=== PATIENT | female | born 1995 | race African-American/Black ===

== ENCOUNTER → 2016-11-30 | Outpatient (CLI) | payer OTHER ==
[~2016-11-30] MED LIST: CEPH500C3 PO; DIFL150T PO; DOCO200C; DOXY100T PO; FERR325T PO; HYDR-3533 PO; IBUP-232 PO; IBUP800T23 PO; PROM25SU8 PO; ZOVI200C24 PO; [UNRECOGNIZED DRUG - OTHER]
== END ==
LOC: HPND 08:09
PROVIDERS: ATTEND Obstetrics & Gynecology
DX: O36.5990 Maternal care for other known or suspected poor fetal growth, unspecified trimester, not applicable or unspecified (principal); Z3A.36 36 weeks gestation of pregnancy
CPT/HCPCS: 76816

== ENCOUNTER 2016-12-28 19:54 | Inpatient (IN) | payer OTHER ==
[~2016-12-28] VITALS: Ht 170.2 cm; Wt 87.1 kg
[~2016-12-28 19:54] MED LIST changes: -DOCO200C; -FERR325T PO; -IBUP-232 PO
[2016-12-28] MEDS ORDERED: DOCO200C (20:41)
[2016-12-28] MEDS ORDERED: FERR325T PO (20:43)
[2016-12-28] MEDS: LACTATED RINGER'S 1000 ML IV SCH (21:21)
[2016-12-28] MEDS ORDERED: ONDANSETRON HCL 4 MG/2 ML VIAL IV PUSH PRN (21:30)
[2016-12-28] MEDS ORDERED: NS 500 ML BOLUS IV PRN (21:30)
[2016-12-28] MEDS ORDERED: CITRIC ACID-SODIUM CITRATE LIQ 30 ML UDC PO SCH (21:30)
[2016-12-28] MEDS ORDERED: LIDOCAINE HCL 1% 50 ML VIAL INFIL PRN (21:30)
[2016-12-28] MEDS ORDERED: DINOPROSTONE 10 MG INSERT-LEAVE FOR 12 HOURS VAGINAL ONE (21:30)
[2016-12-28] MEDS ORDERED: LACTATED RINGER'S 1000 ML BOLUS IV PRN (21:30)
[2016-12-28] MEDS ORDERED: MINERAL OIL 10 ML VIAL TOP PRN (21:30)
[2016-12-28] MEDS ORDERED: LIDOCAINE HCL 1% 50 ML VIAL I-DERMAL PRN (21:30)
[2016-12-28] MEDS ORDERED: NS 1000 ML IV PRN (21:30)
[2016-12-28] MEDS ORDERED: ZOLPIDEM TARTRATE 10 MG TAB PO PRN (21:30)
[2016-12-28] MEDS ORDERED: OXYTOCIN 30 UNITS 500ML PREMIX IV ONE (21:30)
[2016-12-28 22:10] LABS: AUTOMATED NEUTROPHIL # 4.7 TH/MM3 (1.8-7.7); BASOPHIL % 0.2 % (0.0-2.0); EOSINOPHIL # 0.1 TH/MM3 (0-0.4); EOSINOPHIL % 0.9 % (0.0-4.0); HEMATOCRIT 35.8 % (35.0-46.0); LYMPH % 21.3 % (9.0-44.0); LYMPHOCYTE # 1.4 TH/MM3 (1.0-4.8); MEAN CELL VOLUME 85.8 FL (80.0-100.0); MEAN CORPUSCULAR HGB CONC 32.7 % (32.0-36.0); MONO % 7.5 % (0.0-8.0); NEUT % 70.1 % (16.0-70.0); PLATELET COUNT 183 TH/MM3 (150-450); RED BLOOD COUNT 4.18 MIL/MM3 (4.00-5.30); RED CELL DISTRIBUTION WIDTH 19.1 % (11.6-17.2); WHITE BLOOD COUNT 6.7 TH/MM3 (4.0-11.0)
[2016-12-28 22:14] LABS: HEMO FLAGS AUTO DIFF
[2016-12-28 22:19] LABS: BACTERIA, URINE RARE /hpf; BLOOD, URINE NEG (NEG); COMMENT (UR) CULT NOT INDICATED; CULTURE IF INDICATED CULT NOT INDICATED; GLUCOSE,URINE NEG (NEG); HYALINE CAST, URINE 2 /lpf (RARE); KETONE, URINE NEG (NEG); MUCUS URINE FEW /lpf (OCC); NITRITE,URINE NEG (NEG); PH, URINE 7.5 (5.0-8.5); SQUAMOUS EPITHELIAL CELL URINE 7 /hpf (0-5); URINE COLOR YELLOW (YELLW/STRAW)
[2016-12-28 22:41] VITALS: BP 113/66; PULSE 99
[2016-12-28 22:45] VITALS: RESP 18
[2016-12-28 22:54] LABS: ACANTHOCYTES OCC (NORMAL); KERATOCYTES OCC (NORMAL); OVALOCYTES 1+ (NORMAL); PLATELET ESTIMATE SMEAR NORMAL (NORMAL); PLATELET MORPHOLOGY NORMAL (NORMAL)
[2016-12-28 22:55] LABS: SCAN/DIFF AUTO DIFF CONFIRMED
[2016-12-29] VITALS (81 sets, daily range): BP systolic 97–144; BP diastolic 54–101; PULSE 76–164; RESP 18–20; TEMP 98.1–98.8
[2016-12-29] MEDS: LACTATED RINGER'S 1000 ML IV SCH (01:38)
--- NOTE | 2016-12-29 08:08 | HHI.HP ---
HPI Chief Complaint postterm labor induction, oligo on office sono Date Seen: Dec 28, 2016 Time Seen: 22:00 Travel History International Travel<30 Days: No Contact w/Intl Traveler<30Days: No Known Affected Area: No History of Present Illness HPI 21 yo G0 with EDC 12/27/16 seen in office 12/28/16 for postdates evaluation with finding of SKIP 4.5cm on sonogram, otherwise BPP 8/8. Pt c/o pelvic pressure but no regular contractions, denies VB or LOF. Reports +FM. Pt's care has been complicated by anemia with baseline Hgb 8.6 for which pt was started on oral iron therapy. Also pt was diagnosed and treated for chlamydia in second trimester, test of cure was negative. Otherwise uncomplicated course. Presented late to care at 19 wks, did not know was . Pain 2/ 10 pressure in pelvis. Para: 0 : 1 Last Menstrual Period: March 22, 2016 Miscarriage: 0 : 0 History Past Medical History Narrative Medical anemia in Obstetric History Obstetric History G1 = current, female Past Surgical History Narrative Surgical denies Family History Family History: Negative Social History Alcohol Use: No Tobacco Use: No Substance Abuse: No Allergies-Medications (Allergen,Severity, Reaction): Coded Allergies: No Known Allergies (Verified , 02/06/15) Home Meds Reported Medications Ferrous Sulfate 325 Mg [id number] Mg PO BID #30 TAB Ref 0 12/28/16 Docosahexaenoic Acid ( Dha)200 Mg Cap 12/28/16 Discontinued Reported Medications Ibuprofen 800 Mg [id number] Mg PO TID 02/07/15 [numbing cream] No Conflict Check 02/07/15 Cephalexin (Keflex)500 Mg [id number] Mg PO Q8 #30 CAP 02/07/15 Discontinued Scripts Fluconazole 150 mg (Diflucan 150 mg)150 Mg [id number] Mg PO ONCE #1 TAB Ref 1 Prov:Alisa Smith MD 02/07/15 Promethazine Hcl 25 Mg Tab25 Mg PO Q6H PRN (NAUSEA OR VOMITING) #10 TAB FOR NAUSEA/VOMITING Prov:Alisa Smith MD 02/07/15 Acyclovir (Zovirax)200 Mg [id number] Mg PO 5 TIMES A DAY 10 Days Prov:Alisa Smith MD 02/07/15 Hydrocodone/Acetaminophen 5 mg/325 mg (Lortab 5 mg/325 mg)1 Tab1 Tab PO Q6H PRN (PAIN) #12 TAB Prov:Alisa Smith MD 02/07/15 Doxycycline Hyclate 100 mg 100 Mg [id number] Mg PO BID 7 Days Prov:Alisa Smith MD 02/07/15 Review of Systems General / Constitutional: Weight Gain, No: Fever, Chills, Other Eyes: No: Diploplia, Blurred Vision, Visual changes, Pain, Photophobia HENT: No: Headaches, Vertigo, Lightheadedness Cardiovascular: No: Irregular Rhythm, Chest Pain or Discomfort, Palpitations, Tachycardia, Syncope, Varicosities, Edema, Cyanosis Respiratory: No: Cough, Short of Breath, Other Gastrointestinal: No: Nausea, Vomiting, Diarrhea Genitourinary: Pelvic Pain (pressure), No: Decreased Urinary Output, Oliguria Musculoskeletal: No: Limited ROM, Weakness, Cramping, Edema, Pain Skin: No Rash, No Itching, No Dryness, No Lumps, No Change in Pigmentation, No Change in Nails, No Alopecia, No Lesions Neurologic: No: Weakness, Dizziness, Syncope, Focal Abnormalities, Coordination Problem, Headache, Slurred Speech, Seizures Psychiatric: No: Depression, Suicidal Ideations, Homicidal Ideation Endocrine: No: Heat Intolerance, Cold Intolerance, Polydipsia, Polyuria, Other Physical Exam Vital Signs Date Time Temp Pulse Resp B/P Pulse Ox O2 Delivery O2 Flow Rate FiO2 12/29/16 07:25 20 12/29/16 05:30 98.1 18 12/29/16 05:26 84 125/86 12/29/16 04:00 18 12/29/16 02:56 18 12/29/16 01:32 87 122/78 12/29/16 01:30 20 12/29/16 01:00 18 12/29/16 00:00 18 12/28/16 22:45 18 12/28/16 22:41 99 113/66 Narrative GENERAL: Well-nourished, well-developed patient. SKIN: Warm and dry. HEAD: Normocephalic and atraumatic. EYES: No scleral icterus. No injection or drainage. ENT: No nasal drainage noted. Mucous membranes pink. Airway patent. NECK: Supple, trachea midline. No JVD. CARDIOVASCULAR: Regular rate and rhythm without murmurs, gallops, or rubs. RESPIRATORY: Breath sounds equal bilaterally. No accessory muscle use. BREASTS: declined. ABDOMEN/GI: Abdomen soft, non-tender, bowel sounds present, no rebound, no guarding Gravid to [40] weeks size Fundal Height: [40] GENITOURINARY: External Genitalia: intact and normal in appearance BUS glands: [wnl] Cervix: post, soft] Dilatation: [1] Effacement: [70] Station: [-1] Presentation: [vtx Membranes: [intact] Uterine Contractions: [rare] FHT's: 8/8 BPP in office, FHTs 140s EXTREMITIES: No cyanosis or edema. BACK: Nontender without obvious deformity. No CVA tenderness. NEUROLOGICAL: Awake and alert. Motor and sensory grossly within normal limits. Five out of 5 muscle strength in all muscle groups. Normal speech. Data Data Vital Signs Reviewed: Yes Orders Complete Blood Count With Diff (12/28/16 20:59) Hold Clot (12/28/16 20:59) Abo/Rh Blood Type (12/28/16 20:59) Urinalysis - C+S If Indicated (12/28/16 20:59) Admit To Inpatient (12/28/16 ) Diet Liquid (12/29/16 Breakfast) Activity Oob Ad [place] (12/28/16 21:09) ^ Labor Induction (12/28/16 21:09) ^ Vaginal Insert (12/28/16 21:09) ^ Vaginal Lavage (12/28/16 21:09) ^ Heart (12/28/16 21:09) Admit To Inpatient (12/28/16 ) Vital Signs (Adult) .Per protocol (12/28/16 21:10) Activity Oob Ad [place] (12/28/16 21:10) ^ Heart (12/28/16 21:10) ^ Amnioinfusion (12/28/16 21:10) Urinary Catheter Management .ONCE (12/28/16 21:10) Resp Oxygen Non Rebreathe Mask (12/28/16 ) ^ Epidural / Intrathecal Infus (12/28/16 21:10) Lactated Ringer's 1000 Ml Inj (Lr 1000 M (12/28/16 21:30) Lactated Ringer's 1000 Ml Inj (Lr 1000 M (12/28/16 21:30) Sodium Chlorid 0.9% 500 Ml Inj (Ns 500 M (12/28/16 21:30) Sodium Chlor 0.9% 1000 Ml Inj (Ns 1000 M (12/28/16 21:30) Lidocaine 1% Inj (50 Ml) (Xylocaine 1% I (12/28/16 21:30) Citric Acid-Sodium Citrate Liq (Bicitra (12/28/16 21:30) Fentanyl Inj (Fentanyl Inj) (12/28/16 21:30) Fentanyl Inj (Fentanyl Inj) (12/28/16 21:30) Oxytocin 30 Units-500ml Premix (Pitocin (12/28/16 21:30) Lidocaine 1% Inj (50 Ml) (Xylocaine 1% I (12/28/16 21:30) Light Mineral Oil (Muri-Lube Oil) (12/28/16 21:30) Dinoprostone Vag Insert (Cervidil Vag In (12/28/16 21:30) Zolpidem (Ambien) (12/28/16 21:30) Ondansetron Inj (Zofran Inj) (12/28/16 21:30) Labs Laboratory Tests Test 12/28/16 20:45 White Blood Count 6.7 Red Blood Count 4.18 Hemoglobin 11.7 Hematocrit 35.8 Mean Corpuscular Volume 85.8 Mean Corpuscular Hemoglobin 28.0 Mean Corpuscular Hemoglobin 32.7 Concent Red Cell Distribution Width 19.1 Platelet Count 183 Mean Platelet Volume 9.8 Neutrophils (%) (Auto) 70.1 Lymphocytes (%) (Auto) 21.3 Monocytes (%) (Auto) 7.5 Eosinophils (%) (Auto) 0.9 Basophils (%) (Auto) 0.2 Neutrophils # (Auto) 4.7 Lymphocytes # (Auto) 1.4 Monocytes # (Auto) 0.5 Eosinophils # (Auto) 0.1 Basophils # (Auto) 0.0 CBC Comment AUTO DIFF Differential Comment AUTO DIFF CONFIRMED Platelet Estimate NORMAL Platelet Morphology Comment NORMAL Ovalocytes 1+ Acanthocytes OCC Keratocytes OCC Urine Color YELLOW Urine Turbidity HAZY Urine pH 7.5 Urine Specific [place] 1.019 Urine Protein TRACE Urine Glucose (UA) NEG Urine Ketones NEG Urine Occult Blood NEG Urine Nitrite NEG Urine Bilirubin NEG Urine Urobilinogen LESS THAN 2.0 Urine Leukocyte Esterase LARGE Urine RBC LESS THAN 1 Urine WBC 4 Urine Squamous Epithelial 7 Cells Urine Bacteria RARE Urine Hyaline Casts 2 Urine Mucus FEW Microscopic Urinalysis Comment CULT NOT INDICATED Blood Type A POSITIVE Blood Bank Comment Band and Hold Assessment/Plan Problem List: (1) Post term over 40 weeks (2) Oligohydramnios in he in third trimester (3) Labor and delivery indication for care or intervention Assessment and Plan 21 yo G1 with he IUP at 40w2d admit for post term labor induction due to oligohydramnios 1) IOL: plan cervidil overnight, then AROM/pitocin as needed; pt aware of r/b/a and consents to induction 2) GBS neg 3) h/o CT 07/2016; s/p tx with neg GEOVANI 08/2016 4) status: female, vtx, Cat I tracing on admit Discharge Planning routine, 2-3d PP Samina Hernandez MD Dec 29, 2016 08:08
[2016-12-29] MEDS ORDERED: OXYTOCIN 30 UNITS-500ML PREMIX 500 ML IV SCH (09:30)
--- NOTE | 2016-12-29 09:55 | PD.LABORPN ---
Subjective Subjective pt s/p cervidil overnight Objective Vital Signs Vital Signs Date Time Temp Pulse Resp B/P Pulse Ox O2 Delivery O2 Flow Rate FiO2 12/29/16 07:30 98.8 12/29/16 07:26 80 122/77 12/29/16 07:25 20 12/29/16 05:30 98.1 18 12/29/16 05:26 84 125/86 12/29/16 04:00 18 12/29/16 02:56 18 Objective Pelvic Exam: Cervix: 50/-1 posterior, pt highly intolerant of exam. Presentation: ceph Membranes: [intact Uterine Contractions:q4-7min FHT's: Category: 1 Baseline: 130 Reactive:y Variability mod Decels: [-] Assessment/Plan Problem List: (1) Post term over 40 weeks (2) Oligohydramnios in he in third trimester (3) Labor and delivery indication for care or intervention Assessment and Plan 21 yo G1 with he IUP at 40w2d admit for post term labor induction due to oligohydramnios 1) IOL: cervidil overnight,unable to tolerate exam to perform AROM. Will start pitocin; pt aware of r/b/a and consents to induction 2) GBS neg 3) h/o CT 07/2016; s/p tx with neg GEVOANI 08/2016 4) status: female, vtx, Cat I tracing Yesenia Manzo MD Dec 29, 2016 09:55
[2016-12-29] MEDS ORDERED: fentaNYL 2MCG-BUPIV 0.125% INJ 100 ML ONE (11:06)
[2016-12-29] MEDS ORDERED: ePHEDrine/NS 25 MG/5 ML SYR ONE (13:10)
[2016-12-29] MEDS ORDERED: DO NOT ADM ANY ANTICOAGULANT DRUGS XX PRN (13:30)
--- NOTE | 2016-12-29 15:53 | PD.OB.DELI ---
Delivery Date: Dec 29, 2016 Anesthesia: Epidural Episiotomy: None Vaginal Delivery: Normal Presentation: Occiput anterior Nuchal Cord: None Delayed cord clamping (45 sec): Yes Infant: Female One Minute : 9 Five Minute : 9 Weight: 6 pounds 14 oz Infant Care: Spontaneous crying Placenta: Spontaneous delivery, Intact, 3 vessel cord Laceration: Vaginal laceration (bilateral periurethral), 1 deg Repair: Chromic interrupted, Chromic running Additional Information ebl 200ml Yesenia Manzo MD Dec 29, 2016 15:53
[2016-12-29] MEDS ORDERED: DIPHTH/TETANUS/ACEL PERTUSSIS (BOOSTER) 0.5 ML VIAL/PFS IM ONE (16:00)
[2016-12-29] MEDS ORDERED: ALUMINUM/MAGNESIUM/SIMETH 30 ML CUP PO PRN (16:00)
[2016-12-29] MEDS ORDERED: ACETAMINOPHEN 325 MG TAB PO PRN (16:00)
[2016-12-29] MEDS ORDERED: SODIUM CHLORIDE 0.9% FLUSH 5 ML FLUSH IV PRN (16:00)
[2016-12-29] MEDS ORDERED: ONDANSETRON ODT 4 MG TAB PO PRN (16:00)
[2016-12-29] MEDS ORDERED: BENZOCAINE 20% TOPICAL SPRAY 60 ML CAN TOPICAL PRN (16:00)
[2016-12-29] MEDS ORDERED: WITCH HAZEL 50%/GLYCERIN 12.5% 40 PAD JAR TOPICAL PRN (16:00)
[2016-12-29] MEDS ORDERED: MEASLES, MUMPS, RUBELLA VACCINE 0.5 ML VIAL SQ ONE (16:00)
[2016-12-29] MEDS: DOCUSATE SODIUM 50 MG/SENNA 8.6 MG TAB PO PRN (20:06)
[2016-12-29] MEDS: IBUPROFEN 600 MG TAB PO PRN (20:06)
[2016-12-29] MEDS ORDERED: SODIUM CHLORIDE 0.9% FLUSH 5 ML FLUSH IV SCH (21:00)
[2016-12-29] MEDS ORDERED: ZOLPIDEM TARTRATE 5 MG TAB PO PRN (21:00)
[2016-12-30] MEDS: IBUPROFEN 600 MG TAB PO PRN ×4 (03:19→20:50)
--- NOTE | 2016-12-30 07:58 | HHI.OB ---
Subjective Post Day: 1 Remarks comfortable no complaints nursing Objective Vitals/I&O Vital Signs Date Time Temp Pulse Resp B/P Pulse Ox O2 Delivery O2 Flow Rate FiO2 12/29/16 18:00 104 119/73 12/29/16 17:45 106 119/72 12/29/16 17:30 102 123/78 12/29/16 17:15 101 139/87 12/29/16 17:00 109 142/101 12/29/16 16:50 20 12/29/16 16:45 94 138/79 12/29/16 16:31 105 97/71 12/29/16 16:20 20 12/29/16 16:15 100 130/91 12/29/16 16:05 20 12/29/16 16:00 109 114/74 12/29/16 15:46 164 121/65 12/29/16 15:31 20 12/29/16 15:15 99 142/97 12/29/16 15:10 102 141/91 12/29/16 15:05 86 137/98 12/29/16 15:00 76 110/71 12/29/16 14:55 76 111/68 12/29/16 14:50 77 108/70 12/29/16 14:45 81 106/60 12/29/16 14:40 78 109/66 12/29/16 14:35 84 106/62 12/29/16 14:30 82 104/60 12/29/16 14:25 79 12/29/16 14:25 107/68 12/29/16 14:20 86 114/61 12/29/16 14:17 20 12/29/16 14:15 84 104/60 12/29/16 14:10 81 126/78 12/29/16 14:05 95 116/94 12/29/16 14:00 84 128/87 12/29/16 13:55 83 127/78 12/29/16 13:50 81 121/79 12/29/16 13:45 83 125/82 12/29/16 13:37 20 12/29/16 13:35 88 104/67 12/29/16 13:30 97 100/54 12/29/16 13:25 94 99/62 12/29/16 13:20 102 100/55 12/29/16 13:15 91 102/61 12/29/16 13:10 90 98/63 12/29/16 13:05 87 99/55 12/29/16 13:00 88 101/60 12/29/16 12:55 91 104/58 12/29/16 12:50 90 103/61 12/29/16 12:45 91 100/58 12/29/16 12:40 94 103/63 12/29/16 12:35 87 107/60 12/29/16 12:30 88 129/78 12/29/16 12:25 86 12/29/16 12:25 84 139/76 12/29/16 12:21 84 130/79 12/29/16 12:20 81 12/29/16 12:15 83 12/29/16 12:15 93 130/74 12/29/16 12:10 89 127/73 12/29/16 12:10 92 12/29/16 12:05 83 12/29/16 12:05 90 119/68 12/29/16 12:00 88 119/66 12/29/16 12:00 92 20 12/29/16 11:56 129/77 12/29/16 11:56 89 12/29/16 11:55 102 12/29/16 11:51 139/84 12/29/16 11:51 100 12/29/16 11:50 144/95 12/29/16 11:50 102 12/29/16 11:50 100 12/29/16 11:45 100 12/29/16 11:45 134/86 12/29/16 11:45 102 12/29/16 11:40 98 12/29/16 11:30 86 127/82 12/29/16 11:15 89 119/79 12/29/16 11:14 98.8 20 12/29/16 11:00 76 122/79 12/29/16 10:46 85 121/80 12/29/16 10:44 90 128/88 12/29/16 09:45 20 12/29/16 09:33 88 126/81 Objective Remarks GENERAL: Well-nourished, well-developed patient. CARDIOVASCULAR: Regular rate and rhythm without murmurs, gallops, or rubs. RESPIRATORY: Breath sounds equal bilaterally. No accessory muscle use. ABDOMEN/GI: Abdomen soft, non-tender. Fundus: Firm, non-tender at umbilicus. GENITOURINARY: Light to moderate bleeding. EXTREMITIES: No cyanosis or edema, non-tender, without signs of DVT. Medications and IVs Current Medications Medications (Trade) Dose Ordered Sig/Kaila Route Start Time Stop Time Status Last Admin (NS Flush) 2 ml BID IV 12/29/16 21:00 12/29/16 20:06 (NS Flush) 2 ml UNSCH PRN IV 12/29/16 16:00 (Tylenol) 650 mg Q4H PRN PO 12/29/16 16:00 (Motrin) 600 mg Q6H PRN PO 12/29/16 16:00 12/30/16 03:19 (Americaine 20% Top Spr) 1 spray Q4H PRN TOPICAL 12/29/16 16:00 12/29/16 20:05 (Tucks Pads) 1 applic QID PRN TOPICAL 12/29/16 16:00 12/29/16 20:05 (Serenity-Colace) 2 tab Q12H PRN PO 12/29/16 16:00 12/29/16 20:06 (Ambien) 5 mg HS PRN PO 12/29/16 21:00 (Mag-Al Plus Susp Liq) 15 ml Q8H PRN PO 12/29/16 16:00 (Zofran Odt) 4 mg Q6H PRN PO 12/29/16 16:00 Assessment/Plan Problem List: (1) Post term over 40 weeks (2) Oligohydramnios in he in third trimester (3) Labor and delivery indication for care or intervention Assessment and Plan Normal PPD 1 anticipate discharge in am Monday Discharge Planning routine, 2-3d PP Kacie Murphy MD Dec 30, 2016 07:58
[2016-12-30 08:50] VITALS: BP 138/72; PULSE 90; RESP 18; TEMP 97.8
[2016-12-30] MEDS: oxyCODONE/ACETAMINOPHEN 5 MG/325 MG TAB PO PRN ×2 (15:01→20:51)
[2016-12-30] MEDS: DOCUSATE SODIUM 50 MG/SENNA 8.6 MG TAB PO PRN (15:02)
[2016-12-30 20:00] VITALS: BP 118/77; PULSE 102; RESP 18; TEMP 98.4
[2016-12-30 20:47] VITALS: BP 118/77
[2016-12-31] MEDS: IBUPROFEN 600 MG TAB PO PRN ×2 (03:21→09:51)
[2016-12-31] MEDS: oxyCODONE/ACETAMINOPHEN 5 MG/325 MG TAB PO PRN ×2 (03:21→09:52)
[2016-12-31 08:45] VITALS: BP 122/67; PULSE 79; RESP 18; TEMP 98.2
[2016-12-31] MEDS: DOCUSATE SODIUM 50 MG/SENNA 8.6 MG TAB PO PRN (09:52)
--- NOTE | 2016-12-31 10:07 | HHI.OB ---
Subjective Post Day: 2 Remarks Doing well with no complaints nursing will discuss contraception in office Objective Vitals/I&O Vital Signs Date Time Temp Pulse Resp B/P Pulse Ox O2 Delivery O2 Flow Rate FiO2 12/30/16 20:47 118/77 12/30/16 20:00 102 118/77 12/30/16 20:00 18 12/30/16 20:00 98.4 Objective Remarks GENERAL: Well-nourished, well-developed patient. CARDIOVASCULAR: Regular rate and rhythm without murmurs, gallops, or rubs. RESPIRATORY: Breath sounds equal bilaterally. No accessory muscle use. ABDOMEN/GI: Abdomen soft, non-tender. Fundus: Firm, non-tender at umbilicus. GENITOURINARY: Light to moderate bleeding. EXTREMITIES: No cyanosis or edema, non-tender, without signs of DVT. Medications and IVs Current Medications Medications (Trade) Dose Ordered Sig/Kaila Route Start Time Stop Time Status Last Admin (NS Flush) 2 ml BID IV 12/29/16 21:00 12/29/16 20:06 (NS Flush) 2 ml UNSCH PRN IV 12/29/16 16:00 (Tylenol) 650 mg Q4H PRN PO 12/29/16 16:00 (Motrin) 600 mg Q6H PRN PO 12/29/16 16:00 12/31/16 09:51 (Americaine 20% Top Spr) 1 spray Q4H PRN TOPICAL 12/29/16 16:00 12/29/16 20:05 (Tucks Pads) 1 applic QID PRN TOPICAL 12/29/16 16:00 12/29/16 20:05 (Serenity-Colace) 2 tab Q12H PRN PO 12/29/16 16:00 12/31/16 09:52 (Ambien) 5 mg HS PRN PO 12/29/16 21:00 (Mag-Al Plus Susp Liq) 15 ml Q8H PRN PO 12/29/16 16:00 (Zofran Odt) 4 mg Q6H PRN PO 12/29/16 16:00 (Percocet 5-325 Mg) 1 tab Q4H PRN PO 12/30/16 12:45 12/31/16 09:52 Assessment/Plan Problem List: (1) Post term over 40 weeks (2) Oligohydramnios in he in third trimester (3) Labor and delivery indication for care or intervention Assessment and Plan normal PPD 2 home today with instructions Discharge Planning routine, 2-3d PP Kacie Murphy MD Dec 31, 2016 10:07
[2016-12-31] MEDS ORDERED: IBUP-232 PO (10:08)
--- NOTE | 2016-12-31 10:08 | HHI.DCPOC ---
Discharge Care Plan Report Symptoms to Your Doctor -Temperate above 100.5 degrees -Redness, of incision or excessive or foul smelling drainage -Unusual pain or calf pain -Increased vaginal bleeding -Painful or difficulty urinating -Feelings of extreme sadness or anxiety after 2 weeks Goals to Promote Your Health * To prevent worsening of your condition and complications * To maintain your health at the optimal level Directions to Meet Your Goals Take your medications as prescribed Follow your dietary instruction Follow activity as directed Ensure plenty of rest for recovery Drink fluids for hydration Keep your appointments as scheduled Take your immunizations and boosters as scheduled If your symptoms worsen call your PCP, if no PCP go to Urgent Care Center or Emergency Room Smoking is Dangerous to Your Health. Avoid second hand smoke Call the 24-hour crisis hotline for domestic abuse at Kacie Murphy MD Dec 31, 2016 10:08
== END 2016-12-31 14:23 | disposition home or self-care (01) | DRG 775 ==
LOC: H2EB 19:54 → H1EA 12-29 18:29
PROVIDERS: ADMIT Obstetrics & Gynecology; ATTEND Obstetrics & Gynecology
PROC: 0HQ9XZZ Repair Perineum Skin, External Approach (ICD-10-PCS; principal; 2016-12-29)
PROC: 10E0XZZ Delivery of Products of Conception, External Approach (ICD-10-PCS; 2016-12-29)
PROC: 3E0R3CZ (ICD-10-PCS; 2016-12-29)
PROC: 00HU33Z Insertion of Infusion Device into Spinal Canal, Percutaneous Approach (ICD-10-PCS; 2016-12-29)
DX: O41.03X0 Oligohydramnios, third trimester, not applicable or unspecified (principal); D64.9 Anemia, unspecified; O99.02 Anemia complicating childbirth; O48.0 Post-term pregnancy; O70.0 First degree perineal laceration during delivery; Z3A.40 40 weeks gestation of pregnancy; Z37.0 Single live birth
CPT/HCPCS: 81001; 85025; 86900; 86901; J2405; J3010; J7120